=== PATIENT | female | born 1965 ===

== ENCOUNTER 2021-02-05 10:30 | Outpatient (REF) | payer BC, SELFPAY ==
--- NOTE | 2021-02-05 10:30 | PAPFT_PTH ---
PATIENT: Frederick Ellis LOC: [facility] U#:[id number] AGE/SX: 55/F ROOM: RE02/05/[address]: Jesus Vaughn : 1965 BED: DIS: 02/05/2021 SPEC #: [id number] RECD: 02/08/21 13:02 STATUS: PATTI CORTES #: [id number] VELMA: 02/05/21 10:[address]: Jesus Vaughn DEPT: [facility] Cytology RECD BY: Amanda Louis Tissues: 1 - CX/ENDOCX FOR PAP SMEARS Procedures: PAP THIN PREP/[facility] Screening Comments: [id number] (UNSATISFACTORY FOR EVALUATION)
== END 2021-02-05 10:31 | disposition home or self-care (01) ==
LOC: LBN 10:30
PROVIDERS: Visit Provider Naturopath
DX: Z00.00 Encounter for general adult medical examination without abnormal findings (principal); Z12.4 Encounter for screening for malignant neoplasm of cervix; Z01.419 Encounter for gynecological examination (general) (routine) without abnormal findings; Z78.0 Asymptomatic menopausal state; R87.615 Unsatisfactory cytologic smear of cervix
CPT/HCPCS: 88142

== ENCOUNTER 2021-04-30 02:31 | Outpatient (CLI) | payer BC, SELFPAY ==
--- NOTE | 2021-04-30 16:16 | DI.MAMMO_ITS ---
Exam(s) MAMMO SCREENING EXAM: MAMMO SCREENING CLINICAL HISTORY: SCREENING, Z12.31, BASELINE. TECHNIQUE: Bilateral full field digital CC and MLO mammographic images were obtained with 3D tomosyn thesis and utilizing computer aided detection (CAD). COMPARISON: None. This is a baseline mammogram on this 55-year-old patient. FINDINGS: Fibroglandular tissue is moderately dense, this decreasing the sensitivity of the mammogram for findi ng in underlying lesions. In the left breast anteromedially there is a 10 by 9 millimeter asymmetric density located 3 cm in fr om the nipple. Requires additional imaging including spot compression view and ultrasound. In addit ion, there is an area of mild architectural distortion noted more posteriorly in the left breast, med ial of center which should also undergo spot-compression view. Posterolaterally in the left breast there is a small nodular density which is probably benign lymph n ode. No significant radiograph findings in the right breast. IMPRESSION: Dense bilateral fibroglandular tissue with no previous mammograms for comparison. Three findings in left breast as described above. Spot compression views and ultrasound recommended. Indeed, I recommend this patient undergo bilateral complete breast ultrasound given the above findi ngs as well as the density of her fibroglandular tissue in both breasts. BI-RADS Category 0 - Assessment Incomplete: Need additional imaging evaluation Breast Density - Category C - Heterogeneously dense Breast density Category C or D implies that the patient has dense breast tissue. Dense breast tissue can make it harder to find cancer on a mammogram. Dense breast tissue is also associated with an incr eased risk of breast cancer. This information about the result of the mammogram report was provided to the patient to raise their awareness. Use this report when you speak with the patient about their risks for breast cancer, which includes their family history. At that time, you may recommend additional screening tests (Ultrasoun d or MRI) as these tests may add significant information. A negative radiographic report should not delay biopsy if a dominant or clinically suspicious mass is present. Up to ten percent of cancers are not identified on mammography. A negative report may reinforce clinical impression. Adenosis and dense breasts may obscure an underlying neoplasm. False positive reports average 6 to 10%. Patient will receive a letter notifying them of these results.
== END 2021-04-30 02:51 ==
PROVIDERS: Visit Provider Naturopath
DX: Z12.31 Encounter for screening mammogram for malignant neoplasm of breast (principal); R92.8 Other abnormal and inconclusive findings on diagnostic imaging of breast
CPT/HCPCS: 77063; 77067

== ENCOUNTER 2021-05-28 01:28 | Outpatient (CLI) | payer BC, SELFPAY ==
--- NOTE | 2021-05-28 | DI.US_ITS ---
Exam(s) MG MAMMO SCREEN CALL BACK UNI US BREAST LT COMPLETE US BREAST RT COMPLETE EXAM: MG MAMMO SCREEN CALL BACK UNI and U/S breast bilateral complete CLINICAL HISTORY: F/U MAMMO, LT ASYMMETRIC DENSITY,MILD ARCHITECTURAL DISTORTION LT,SMALL. TECHNIQUE: Craniocaudal and mediolateral oblique Full Field Digital Mammography views of the left br east with Computer Aided Diagnosis followed by Tomosynthesis and bilateral breast ultrasound. COMPARISON: Comparison with prior examinations. FINDINGS: Mammography/Tomosynthesis: Masses/Architectural Distortion: There is again seen an ovoid partially obscured nodule just medial t o the nipple. Microcalcifictions: No suspicious pleomorphic-type are seen. Skin Thickening/Nipple Retraction: None. Bilateral breast US: All 4 quadrants of both breast were evaluated sonographically including the axil la. Echotexture: Normal appearance of the glandular tissue. Shadowing: No suspicious foci. Cyst: None. Solid lesions: There is a 1.2 x 0.7 x 1.2 cm hypoechoic nodule at the 11 to 12 o'clock position of th e left breast 1 cm from the nipple. This appears to correspond to the mammographic abnormality. It is adjacent to a mildly dilated duct. An intraductal mass cannot be excluded. No cystic or solid ma sses are seen in the right breast. Ductal dilation: None. IMPRESSION: 1. 1.2 x 0.7 x 1.2 cm hypoechoic nodule at the 11 to 12 o'clock position of the left breast 1 cm from the nipple. This appears to correspond to the mammographic abnormality. It lies adjacent to a mild ly dilated duct. 2. Biopsy is recommended. 3. Findings were discussed with the patient on the date of the examination. BI-RADS Category 4 - Suspicious Abnormality: Biopsy should be considered Kings C Breast density Category C or D implies that the patient has dense breast tissue. Dense breast tissue can make it harder to find cancer on a mammogram. Dense breast tissue is also associated with an incr eased risk of breast cancer. This information about the result of the mammogram report was provided to the patient to raise their awareness. Use this report when you speak with the patient about their risks for breast cancer, which includes their family history. At that time, you may recommend additional screening tests (Ultrasoun d or MRI) as these tests may add significant information. A negative radiographic report should not delay biopsy if a dominant or clinically suspicious mass is present. Up to ten percent of cancers are not identified on mammography. A negative report may reinforce clinical impression. Adenosis and dense breasts may obscure an underlying neoplasm. False positive reports average 6 to 10%. Patient will receive a letter notifying them of these results.
== END 2021-05-28 01:48 ==
PROVIDERS: Visit Provider Naturopath
DX: R92.8 Other abnormal and inconclusive findings on diagnostic imaging of breast (principal); N63.22 Unspecified lump in the left breast, upper inner quadrant
CPT/HCPCS: 76642; 77063; 77067

== ENCOUNTER → 2023-06-22 01:14 | Outpatient (CLI) | payer BC, SELFPAY ==
--- NOTE | 2023-06-22 12:20 | DI.MAMMO_ITS ---
Exam(s) MAMMO SCREENING EXAM: MAMMO SCREENING CLINICAL HISTORY: SCREENING, Z12.31. TECHNIQUE: Bilateral full field digital CC and MLO mammographic images were obtained with 3D tomosyn thesis and utilizing computer aided detection (CAD). COMPARISON: Prior baseline diagnostic mammograms were reviewed. Prior ultrasound of April 2021 was reviewed. Patient apparently underwent biopsy of left breast fin shmuel, apparently negative for malignancy FINDINGS: The fibroglandular tissue pattern is again noted be moderately dense. There are no new significant radiograph findings in the right breast. The previously described nodular density anteromedially in the left breast is again noted, appearing similar to previous and with a percutaneously placed biopsy marker device at this level now evident. There are no new spiculated masses. No malignant-appearing microcalcification groups. There is no significant architectural distortion nor skin thickening-retraction. IMPRESSION: 1. No radiographic evidence of malignancy in the right breast. 2. Stable size of anteriorly located left breast nodule, unchanged in size from April 2021. This ap parently underwent interval biopsy and apparently negative for malignancy. BI-RADS Category 2 - Benign Findings Breast Density - Category C - Heterogeneously dense Breast density Category C or D implies that the patient has dense breast tissue. Dense breast tissue can make it harder to find cancer on a mammogram. Dense breast tissue is also associated with an incr eased risk of breast cancer. This information about the result of the mammogram report was provided to the patient to raise their awareness. Use this report when you speak with the patient about their risks for breast cancer, which includes their family history. At that time, you may recommend additional screening tests (Ultrasoun d or MRI) as these tests may add significant information. A negative radiographic report should not delay biopsy if a dominant or clinically suspicious mass is present. Up to ten percent of cancers are not identified on mammography. A negative report may reinforce clinical impression. Adenosis and dense breasts may obscure an underlying neoplasm. False positive reports average 6 to 10%. Patient will receive a letter notifying them of these results.
== END ==
PROVIDERS: Visit Provider Naturopath
DX: Z12.31 Encounter for screening mammogram for malignant neoplasm of breast (principal)
CPT/HCPCS: 77063; 77067

== ENCOUNTER 2025-08-04 09:46 | Outpatient (REF) | payer BC, SELFPAY ==
[2025-08-04 15:53] LABS: HCT 44.7 % (36.0-46.0); HGB 15.1 g/dL (11.2-15.7); MCH 30.9 pg (27.0-33.0); MCHC 33.8 % (32.0-36.0); MCV 91 fL (80-95); MPV 10.4 fL (8.0-11.0); Platelet Count 222 10^3/uL (130-400); RBC 4.89 10^6/uL (3.93-5.22); RDW 13.0 % (11.7-14.6); RDW-SD 43.9 fL; WBC 5.21 10^3/uL (4.4-10.8)
[2025-08-04 16:10] LABS: ALT 28 U/L (14-59); AST 22 U/L (15-37); Albumin 3.8 g/dL (3.4-5.0); Alkaline Phosphatase 80 U/L (46-116); Anion Gap 6.8 mmol/L (3-11); BUN 19 mg/dL (7-18); Bilirubin, Total 0.5 mg/dL (0.2-1.0); CO2 28.2 mmol/L (21.0-32.0); Calcium 9.2 mg/dL (8.5-10.1); Chloride 105 mmol/L (98-107); Glucose 92 mg/dL (74-106); Potassium 4.3 mmol/L (3.5-5.1); Sodium 140 mmol/L (136-145); Total Protein 7.3 g/dL (6.4-8.2)
== END 2025-08-04 09:47 | disposition home or self-care (01) ==
LOC: NCHCN 09:46
PROVIDERS: PCP Family Medicine; Visit Provider Family Medicine
DX: Z13.0 Encounter for screening for diseases of the blood and blood-forming organs and certain disorders involving the immune mechanism (principal); L68.0 Hirsutism
CPT/HCPCS: 80053; 85027